=== PATIENT | male | born 1985 | race Caucasian/White ===

== ENCOUNTER 2019-12-04 16:47 | Inpatient (IN) | payer BC, OTHER ==
[2019-12-04 17:30] VITALS: BMI 25.0
--- NOTE | 2019-12-04 17:32 | BHS.RME ---
Substance Use & Tx History - Substance Use History Heroin Substance amount: 20-30 bags Substance route: Injection (ex: intravenous or skin popping) Cocaine- Powder Substance amount: 20-0 $ Frequency of use: Daily Substance route: Injection (ex: intravenous or skin popping) Benzodiazepines Substance amount: 2-4 Frequency of use: Daily Substance route: Oral Cannabis Substance amount: 1-2 Frequency of use: Daily OxyContin Substance amount: 2-3 Frequency of use: Daily Substance route: Oral Physical/Psych/Mental Status - Behavior Eye Contact: Normal - Cooperativeness Cooperativeness: Cooperative - Thinking Thought Processes: Logical - Physical Health Problems Is patient presently having any pain?: No Does patient presently have any injuries (include location): No Does patient currently have a fever: No COWS - Scale Resting Pulse: 0= [place] 80 or Below Sweatin= No chills or Flushing Restless Observation: 3= Extraneous Movement Pupil Size: 0= Normal to Room Light Bone or Joint Aches: 1= Mild Discomfort Runny Nose/ Eye Tearin= None GI Upset > 30mins: 0= None Tremor Observation: 0= None Yawning Observation: 0= None Anxiety or Irritability: 0= None Goose Flesh Skin: 0=Smooth Skin COWS Score: 4 CIWA Nausea/Vomitin-No Nausea/No Vomiting Muscle Tremors: None Anxiety: 1-Mildly Anxious Agitation: 1-Slight > Activity Paroxysmal Sweats: No Perspiration Orientation: 3-Disoriented Date>2 days Tacttile Disturbances: 0-None Auditory Disturbances: 0-None Visual Disturbances: 0-None Headache: 1-Very Mild CIWA-Ar Total Score: 6
--- NOTE | 2019-12-04 17:38 | HP ---
COWS - Scale Resting Pulse: 0= [place] 80 or Below Sweatin= No chills or Flushing Restless Observation: 3= Extraneous Movement Pupil Size: 0= Normal to Room Light Bone or Joint Aches: 1= Mild Discomfort Runny Nose/ Eye Tearin= Nasal Congestion GI Upset > 30mins: 0= None Tremor Observation: 0= None Yawning Observation: 1= 1-2x During Session Anxiety or Irritability: 0= None Goose Flesh Skin: 0=Smooth Skin COWS Score: 6 CIWA Score Nausea/Vomitin-No Nausea/No Vomiting Muscle Tremors: None Anxiety: 1-Mildly Anxious Agitation: 1-Slight > Activity Paroxysmal Sweats: No Perspiration Orientation: 3-Disoriented Date>2 days Tacttile Disturbances: 0-None Auditory Disturbances: 0-None Visual Disturbances: 0-None Headache: 1-Very Mild CIWA-Ar Total Score: 6 - Admission Criteria OASAS Guidelines: Admission for Medically Managed Detox: Requires at least one of the followin. CIWA greater than 12 2. Seizures within the past 24 hours 3. Delirium tremens within the past 24 hours 4. Hallucinations within the past 24 hours 5. Acute intervention needed for co occurring medical disorder 6. Acute intervention needed for co occurring psychiatric disorder 7. Severe withdrawal that cannot be handled at a lower level of care (continued vomiting, continued diarrhea, abnormal vital signs) requiring intravenous medication and/or fluids 8. Admission ROS [facility] Allergies/Adverse Reactions: Allergies Allergy/AdvReac Type Severity Reaction Status Date / Time No Known Allergies Allergy Verified 12/04/19 17:29 History of Present Illness: 34 y.o. male requesting detox from opiate and benzo uze, claims 20-30 bags iv x 10 yrs , needles form the pharamcy , dneies sharing, + re-using , shayna abscess, OD x 4 most recently 6 mo ago , narcan by EMS , prior detox [facility] 1 yr ago , on [facility] x 10 yrs intermittently , through 6 mo ago , stopped going @65 mg . Not planning to return to [facility] . benzo : 2-4 mg / day x 15 years , had a seizure " a long time ago " tobacco : 1/2 ppd requesting nrt w/ gum DISCUSSED W/ PT AT LENGTH RISK OF RESPIRATORY ILLNESS N THE CONTEXT OF HIS ELENI: SMOKING COCAINE, CANNABIS, CIGARETTES , PT ANSWERS " THE WAY I'VE BEEN GOING , I REALLY DON'T CARE " PMHX /PSHX : asthma , hypothyroidism , hypogonadism pshx denies psych : denies no children legal : " a few open cases " in [place] , all drug-related , due in court Jan 04 This report was requested by: Tigist Moreno | Reference #: [id number] Others' Prescriptions Patient Name: Matt Shine Date: 1985 Address: [address], [place] [address]Vju: Male Rx Written Rx Dispensed Drug Quantity Days Supply Prescriber Name Payment Method Dispenser 11/20/2019 11/22/2019 testosterone cyp 200 mg/ml 4ml 30 CalPatrice murguia MD Medicaid [facility] #[id number] 06/25/2019 06/29/2019 testosterone cyp 200 mg/ml 4ml 28 CalamiaPatrice MD Medicaid [facility] #[id number] 05/25/2019 06/02/2019 testosterone cyp 200 mg/ml 4ml 28 CalPatrice murguia MD Medicaid [facility] #[id number] 04/18/2019 05/01/2019 testosterone cyp 200 mg/ml 4ml 30 CalamiaPatrice MD [facility] #[id number] 03/06/2019 03/08/2019 testosterone cyp 200 mg/ml 4ml 28 Patrice Bahena MD [facility] #[id number] 01/28/2019 02/03/2019 testosterone cyp 200 mg/ml 4ml 30 Patrice Bahena MD [facility] #[id number] 12/19/2018 12/20/2018 testosterone cyp 200 mg/ml 4ml 30 Patrice Bahena MD [facility] #[id number] Patient Name: Matt Shine Date: 1985 Address: [address] [place] [id number]: Male Rx Written Rx Dispensed Drug Quantity Days Supply Prescriber Name Payment Method Dispenser 01/18/2019 01/19/2019 testosterone cyp 200 mg/ml 2ml 14 Antoni Addison Medicaid [facility] Exam Limitations: No Limitations - Review of Systems Constitutional: No Symptoms Reported EENT: reports: No Symptoms Reported, Hearing Loss Respiratory: reports: No Symptoms reported Cardiac: reports: No Symptoms Reported GI: reports: Constipated, Vomiting (last few days upn awakening due to w/d) : reports: No Symptoms Reported Musculoskeletal: reports: Muscle Pain Integumentary: reports: See HPI Neuro: reports: Headache Endocrine: reports: See HPI Hematology: reports: No Symptoms Reported Psychiatric: reports: Disorientated Patient History - Smoking Cessation Smoking history: Current every day smoker Have you smoked in the past 12 months: Yes Hx Chewing Tobacco Use: No Initiated information on smoking cessation: Yes 'Breaking Loose' booklet given: 12/04/19 Admission Physical Exam BHS - Vital Signs Vital Signs: Vital Signs - 24 hr 12/04/19 17:28 Temperature 97.6 F Pulse Rate 77 Respiratory 17 Rate Blood Pressure 127/74 - Physical General Appearance: Yes: Mild Distress, Anxious HEENTM: Yes: EOMI, Hearing grossly Normal, Normocephalic, Normal Voice, Hearing Decreased Respiratory: Yes: Chest Non-Tender, No Respiratory Distress, No Accessory Muscle Use, Rhonchi (RUL / RLL) Neck: Yes: No masses,lesions,Nodules, Trachea in good position Cardiology: Yes: Regular Rhythm, Regular Rate, S1, S2 Abdominal: Yes: Non Tender, Soft Back: Yes: Normal Inspection Musculoskeletal: Yes: Gait Steady Extremities: Yes: Normal Range of Motion, Non-Tender Neurological: Yes: Alert, Motor Strength 5/5, Disoriented Integumentary: Yes: Warm - Diagnostic (1) Opioid use disorder Current Visit: Yes Status: Chronic (2) Sedative, hypnotic or anxiolytic use disorder, mild, abuse Current Visit: Yes Status: Chronic (3) Nicotine dependence Current Visit: Yes Status: Chronic Qualifiers: Nicotine product type: cigarettes (4) Cocaine use disorder Current Visit: Yes Status: Chronic (5) Cannabis dependence Current Visit: Yes Status: Chronic Breathalyzer - Breathalyzer Breathalyzer: 0 Urine Drug Screen - Test Device Lot number: [id number] Expiration date: 06/05/21 - Control Is test valid?: Yes - Results Drug screen NEGATIVE: No Urine drug screen results: THC-Marijuana, ADELE-Cocaine, FEN-Fentanyl, MOP- Opiates, OXY-Oxycodone Inpatient Rehab Admission - Rehab Decision to Admit Inpatient rehab admission?: No
[2019-12-04] MEDS ORDERED: MENTHOL/PHENOL 1 EACH UD MM PRN (17:48)
[2019-12-04] MEDS ORDERED: MAG HYDROX/AL HYDROX/SIMETH 30 ML UNIT-DOSE CUP PO PRN (17:48)
[2019-12-04] MEDS ORDERED: NICOTINE POLACRILEX 2 MG GUM BUC PRN (17:48)
[2019-12-04] MEDS ORDERED: BISMUTH SUBSALICYLATE 524 MG/30 ML UD PO PRN (17:48)
[2019-12-04] MEDS ORDERED: ONDANSETRON *ODT* 4 MG TABLET SL PRN (17:48)
[2019-12-04] MEDS ORDERED: ACETAMINOPHEN 325 MG TABLET (FP) PO PRN ×2 (17:48)
[2019-12-04] MEDS ORDERED: MAGNESIUM HYDROX 2400MG/30ML ORAL SUSPENSION 30 ML CUP PO PRN (17:48)
[2019-12-04] MEDS ORDERED: MAGNESIUM CITRATE 300 ML BOTTLE PO PRN (17:48)
--- OUTSIDE RECORDS SUMMARY | 2019-12-04 18:46 | XMS ---
:1985 Author Organization [facility] Support Name Relationship Address Phone UE Unavailable Unavailable Unavailable REY RICHARDSON SELF / SAME PATIENT [address] [facility] [phone] [place] [address] Re-disclosure Warning The records that you are about to access may contain information from federally- assisted alcohol or drug abuse programs. If such information is present, then the following federally mandated warning applies: This information has been disclosed to you from records protected by federal confidentiality rules (42 CFR part 2). The federal rules prohibit you from making any further disclosure of this information unless further disclosure is expressly permitted by the written consent of the person to whom it pertains or as otherwise permitted by 42 CFR part 2. A general authorization for the release of medical or other information is NOT sufficient for this purpose. The Federal rules restrict any use of the information to criminally investigate or prosecute any alcohol or drug abuse patient.The records that you are about to access may contain highly sensitive health information, the redisclosure of which is protected by Article 27-F of the [facility] Public Health law. If you continue you may haveaccess to information: Regarding HIV / AIDS; Provided by facilities licensed or operated by the [facility] Office of Mental Health; or Provided by the [facility] Office for People With Developmental Disabilities. If such information is present, then the following [facility] mandated warning applies: This information has been disclosed to you from confidential records which are protected by state law. State law prohibits you from making any further disclosure of this information without the specific written consent of the person to whom it pertains, or as otherwise permitted by law. Any unauthorized further disclosure in violation of state law may result in a fine or chcf sentence or both. A general authorization for the release of medical or other information is NOT sufficient authorization for further disclosure. Insurance Providers Payer name Policy type / Policy ID Covered Covered constitution party's Policy Plan Coverage type constitution party ID relationship to [employer] PPO [id number] SP [id number]
[2019-12-04] MEDS: chlordiazePOXIDE HCL 25 MG CAPSULE PO PRN (19:14)
[2019-12-04] MEDS: chlordiazePOXIDE HCL 25 MG CAPSULE PO SCH ×2 (19:15→22:15)
[2019-12-04] MEDS ORDERED: METHADONE HCL 10 MG TABLET (FOR DETOX USE ONLY) PO ONE (22:00)
[2019-12-04] MEDS: THIAMINE HCL 100 MG TABLET (FP) PO SCH (22:15)
[2019-12-04] MEDS: MELATONIN 5 MG TABLETS PO SCH (22:17)
[2019-12-05] MEDS: chlordiazePOXIDE HCL 25 MG CAPSULE PO SCH ×4 (06:25→22:31)
[2019-12-05] MEDS: IBUPROFEN 400 MG TABLET (FP) PO PRN ×2 (06:26→21:00)
--- NOTE | 2019-12-05 08:48 | EKG ---
Test Reason : Blood Pressure : / mmHG Vent. Rate : 084 BPM Atrial Rate : 084 BPM P-R Int : 142 ms QRS Dur : 092 ms QT Int : 348 ms P-R-T Axes : 081 081 065 degrees QTc Int : 411 ms NORMAL SINUS RHYTHM NORMAL ECG NO PREVIOUS ECGS AVAILABLE Confirmed by Fantasma Maradiaga MD ([id number]) on 12/05/2019 8:47:05 AM Referred By: Yuri Couch Confirmed By:Fantasma Maradiaga MD
[2019-12-05] MEDS ORDERED: METHADONE HCL 5 MG TABLET (FOR DETOX USE ONLY) ONE (09:42)
[2019-12-05] MEDS ORDERED: METHADONE HCL 10 MG TABLET (FOR DETOX USE ONLY) ONE (09:43)
[2019-12-05] MEDS ORDERED: METHADONE (DETOX) 20 MG, METHADONE (DETOX) 5 MG PO ONE (10:00)
[2019-12-05] MEDS: PRENATAL VITAMINS W/ FOLIC ACID TABLET (FP) PO SCH (10:09)
[2019-12-05 10:45] LABS: HEMATOCRIT 37.7 % (35.4-49); HEMOGLOBIN 12.6 GM/dL (11.7-16.9); MCH 29.7 pg (25.7-33.7); MCHC 33.6 g/dl (32.0-35.9); MEAN CELL VOLUME 88.3 fl (80-96); MEAN PLT VOLUME 7.1 fl (7.5-11.1); PLATELET COUNT 239 K/MM3 (134-434); RBC 4.27 M/mm3 (4.00-5.60); RDW 14.6 % (11.9-15.9); WHITE BLOOD COUNT 4.1 K/mm3 (4.0-10.0)
[2019-12-05 11:33] LABS: ALBUMIN 3.1 g/dl (3.4-5.0); BILIRUBIN,TOTAL 0.4 mg/dL (0.2-1); BLOOD UREA NITROGEN 7.6 mg/dL (7-18); CALCIUM 8.7 mg/dL (8.5-10.1); CREATININE 1.1 mg/dL (0.55-1.3); POTASSIUM 4.1 mmol/L (3.5-5.1); TOT PROT 6.5 g/dl (6.4-8.2)
--- NOTE | 2019-12-05 12:35 | PN ---
[facility] CIWA - CIWA Score Nausea/Vomitin-No Nausea/No Vomiting Muscle Tremors: 3 Anxiety: 2 Agitation: 3 Paroxysmal Sweats: 3 Orientation: 0-Oriented Tacttile Disturbances: 0-None Auditory Disturbances: 0-None Visual Disturbances: 0-None Headache: 0-None Present CIWA-Ar Total Score: 11 BHS COWS - Scale Resting Pulse: 1= [place] 81-100 Sweatin= Chills/Flushing Restless Observation: 1= Difficult to Sit Still Pupil Size: 0= Normal to Room Light Bone or Joint Aches: 1= Mild Discomfort Runny Nose/ Eye Tearin= Nasal Congestion GI Upset > 30mins: 0= None Tremor Observation of Outstretched Hands: 1= Tremor [place], Not Seen Yawning Observation: 1= 1-2x During Session Anxiety or Irritability: 2=Irritable/Anxious Goose Flesh Skin: 0=Smooth Skin COWS Score: 9 S Progress Note (SOAP) Subjective: sweats shakes increase fluids body aches irritable Objective: 12/05/19 12:34 Vital Signs Temperature 97.7 F 12/05/19 08:34 Pulse Rate 99 H 12/05/19 08:34 Respiratory Rate 18 12/05/19 08:34 Blood Pressure 121/65 12/05/19 08:34 O2 Sat by Pulse Oximetry (%) 98 12/05/19 08:34 Laboratory Tests 12/04/19 12/05/19 12/05/19 07:00 07:00 07:00 WBC 4.1 RBC 4.27 Hgb 12.6 Hct 37.7 MCV 88.3 MCH 29.7 MCHC 33.6 RDW 14.6 Plt Count 239 MPV 7.1 L Sodium 141 Potassium 4.1 Chloride 106 Carbon Dioxide 30 Anion Gap 4 L BUN 7.6 Creatinine 1.1 Est GFR (CKD-EPI)AfAm 99.57 Est GFR (CKD-EPI)NonAf 85.91 Random Glucose 95 Calcium 8.7 Total Bilirubin 0.4 AST 8 L ALT 19 Alkaline Phosphatase 40 L Total Protein 6.5 Albumin 3.1 L Syphilis Serology Non-reactive labs noted aaox3 ambulating no acute distress Assessment: 12/05/19 12:34 withdrawals Plan: continue detox increase fluids
[2019-12-05] MEDS: METHOCARBAMOL 500 MG TABLET PO PRN ×2 (12:52→19:18)
[2019-12-05] MEDS: cloNIDine HCL 0.1 MG TABLET PO PRN (17:41)
[2019-12-05] MEDS: hydrOXYzine PAMOATE 25 MG CAPSULE (FP) PO PRN (19:18)
[2019-12-05] MEDS: chlordiazePOXIDE HCL 25 MG CAPSULE PO PRN (20:57)
[2019-12-05] MEDS: MELATONIN 5 MG TABLETS PO SCH (22:32)
[2019-12-05] MEDS: THIAMINE HCL 100 MG TABLET (FP) PO SCH (22:32)
[2019-12-06] MEDS: METHOCARBAMOL 500 MG TABLET PO PRN ×2 (00:22→07:23)
[2019-12-06] MEDS: chlordiazePOXIDE HCL 25 MG CAPSULE PO PRN (00:23)
[2019-12-06] MEDS: cloNIDine HCL 0.1 MG TABLET PO PRN (00:23)
[2019-12-06] MEDS: hydrOXYzine PAMOATE 25 MG CAPSULE (FP) PO PRN (02:50)
[2019-12-06] MEDS: chlordiazePOXIDE HCL 25 MG CAPSULE PO SCH ×2 (07:22→10:24)
[2019-12-06] MEDS ORDERED: METHOCARBAMOL 750 MG TAB PO PRN (09:29)
[2019-12-06] MEDS ORDERED: hydrOXYzine PAMOATE 50 MG CAPSULE (FP) PO PRN (09:30)
[2019-12-06] MEDS ORDERED: METHADONE HCL 10 MG TABLET (FOR DETOX USE ONLY) PO ONE (10:00)
[2019-12-06] MEDS: PRENATAL VITAMINS W/ FOLIC ACID TABLET (FP) PO SCH (10:24)
[2019-12-06 11:07] VITALS: BP 130/79; PULSE 78; TEMP 98.2
--- NOTE | 2019-12-06 11:27 | PN ---
[facility] CIWA - CIWA Score Nausea/Vomitin-No Nausea/No Vomiting Muscle Tremors: 3 Anxiety: 2 Agitation: 3 Paroxysmal Sweats: 2 Orientation: 0-Oriented Tacttile Disturbances: 0-None Auditory Disturbances: 0-None Visual Disturbances: 0-None Headache: 0-None Present CIWA-Ar Total Score: 10 BHS COWS - Scale Resting Pulse: 0= [place] 80 or Below Sweatin= Chills/Flushing Restless Observation: 1= Difficult to Sit Still Pupil Size: 0= Normal to Room Light Bone or Joint Aches: 2= Severe Diffuse Aches Runny Nose/ Eye Tearin= Nasal Congestion GI Upset > 30mins: 0= None Tremor Observation of Outstretched Hands: 1= Tremor [place], Not Seen Yawning Observation: 1= 1-2x During Session Anxiety or Irritability: 2=Irritable/Anxious Goose Flesh Skin: 0=Smooth Skin COWS Score: 9 BHS Progress Note (SOAP) Subjective: sweats restless legs agitation body aches irritable Objective: 12/06/19 11:19 Vital Signs Temperature 98.2 F 12/06/19 08:34 Pulse Rate 78 12/06/19 08:34 Respiratory Rate 18 12/06/19 08:34 Blood Pressure 130/79 12/06/19 08:34 O2 Sat by Pulse Oximetry (%) 100 12/06/19 08:34 Laboratory Tests 12/04/19 12/04/19 12/05/19 07:00 18:40 07:00 WBC 4.1 RBC 4.27 Hgb 12.6 Hct 37.7 MCV 88.3 MCH 29.7 MCHC 33.6 RDW 14.6 Plt Count 239 MPV 7.1 L Sodium Potassium Chloride Carbon Dioxide Anion Gap BUN Creatinine Est GFR (CKD-EPI)AfAm Est GFR (CKD-EPI)NonAf Random Glucose Calcium Total Bilirubin AST ALT Alkaline Phosphatase Total Protein Albumin Syphilis Serology Non-reactive COVID-19 ([place]) Not detected 12/05/19 07:00 WBC RBC Hgb Hct MCV MCH MCHC RDW Plt Count MPV Sodium 141 Potassium 4.1 Chloride 106 Carbon Dioxide 30 Anion Gap 4 L BUN 7.6 Creatinine 1.1 Est GFR (CKD-EPI)AfAm 99.57 Est GFR (CKD-EPI)NonAf 85.91 Random Glucose 95 Calcium 8.7 Total Bilirubin 0.4 AST 8 L ALT 19 Alkaline Phosphatase 40 L Total Protein 6.5 Albumin 3.1 L Syphilis Serology COVID-19 ([place]) aaox3 ambulating no acute distress Assessment: 12/06/19 11:27 withdrawals pt was made aware I will be increasing roboxin to 750mg and visitril to 50mg prn to assist with his withdrawals. Plan: continue detox
--- NOTE | 2019-12-06 15:22 | DS ---
[facility] Detox Discharge Summary Admission Date: 12/04/19 - History Present History: Cocaine Dependence, Opioid Dependence, Sedative Dependence - Physical Exam Results Vital Signs: Vital Signs Temperature 98.2 F 12/06/19 08:34 Pulse Rate 78 12/06/19 08:34 Respiratory Rate 18 12/06/19 08:34 Blood Pressure 130/79 12/06/19 08:34 O2 Sat by Pulse Oximetry (%) 100 12/06/19 08:34 Pertinent Admission Physical Exam Findings: Vital Signs Temperature 98.2 F 12/06/19 08:34 Pulse Rate 78 12/06/19 08:34 Respiratory Rate 18 12/06/19 08:34 Blood Pressure 130/79 12/06/19 08:34 O2 Sat by Pulse Oximetry (%) 100 12/06/19 08:34 Laboratory Tests 12/04/19 12/04/19 12/05/19 07:00 18:40 07:00 WBC 4.1 RBC 4.27 Hgb 12.6 Hct 37.7 MCV 88.3 MCH 29.7 MCHC 33.6 RDW 14.6 Plt Count 239 MPV 7.1 L Sodium Potassium Chloride Carbon Dioxide Anion Gap BUN Creatinine Est GFR (CKD-EPI)AfAm Est GFR (CKD-EPI)NonAf Random Glucose Calcium Total Bilirubin AST ALT Alkaline Phosphatase Total Protein Albumin Syphilis Serology Non-reactive COVID-19 ([place]) Not detected 12/05/19 07:00 WBC RBC Hgb Hct MCV MCH MCHC RDW Plt Count MPV Sodium 141 Potassium 4.1 Chloride 106 Carbon Dioxide 30 Anion Gap 4 L BUN 7.6 Creatinine 1.1 Est GFR (CKD-EPI)AfAm 99.57 Est GFR (CKD-EPI)NonAf 85.91 Random Glucose 95 Calcium 8.7 Total Bilirubin 0.4 AST 8 L ALT 19 Alkaline Phosphatase 40 L Total Protein 6.5 Albumin 3.1 L Syphilis Serology COVID-19 ([place]) aaox3 ambulating no acute distress pt signed out AMA. - Treatment Hospital Course: Rehab Referral Accepted - Medication Discharge Medications: Ambulatory Orders NK [No Known Home Medication] 12/04/19 - Diagnosis (1) Cannabis dependence Status: Chronic (2) Cocaine use disorder Status: Chronic (3) Nicotine dependence Status: Chronic Qualifiers: Nicotine product type: cigarettes (4) Opioid use disorder Status: Chronic (5) Sedative, hypnotic or anxiolytic use disorder, mild, abuse Status: Chronic - AMA Did Patient Leave Against Medical Advice: Yes
--- NOTE | 2019-12-06 15:23 | PN ---
S Progress Note Note: pt was made aware of risk of leaving AMA and risk for relapse, seizure, DT, OD and or loss. pt chose to sign out.
[2019-12-07] MEDS ORDERED: chlordiazePOXIDE HCL 10 MG CAPSULE PO PRN
[2019-12-07] MEDS ORDERED: chlordiazePOXIDE HCL 10 MG CAPSULE PO SCH (05:00)
[2019-12-07] MEDS ORDERED: METHADONE (DETOX) 10 MG, METHADONE (DETOX) 5 MG PO ONE (10:00)
[2019-12-08] MEDS ORDERED: chlordiazePOXIDE HCL 10 MG CAPSULE PO SCH (05:00)
[2019-12-08] MEDS ORDERED: METHADONE HCL 10 MG TABLET (FOR DETOX USE ONLY) PO ONE (10:00)
[2019-12-09] MEDS ORDERED: chlordiazePOXIDE HCL 10 MG CAPSULE PO ONE (05:00)
[2019-12-09] MEDS ORDERED: METHADONE HCL 5 MG TABLET (FOR DETOX USE ONLY) PO ONE (06:00)
== END 2019-12-06 11:56 | disposition left against medical advice (07) | DRG 770 ==
LOC: YASAS 16:47 → Y6N 18:29
PROVIDERS: ADMIT Allergy & Immunology; ATTEND Allergy & Immunology
PROC: HZ2ZZZZ Detoxification Services for Substance Abuse Treatment (ICD-10-PCS; principal; 2019-12-04)
DX: F11.23 Opioid dependence with withdrawal (principal); F13.20 Sedative, hypnotic or anxiolytic dependence, uncomplicated; F14.20 Cocaine dependence, uncomplicated; F12.20 Cannabis dependence, uncomplicated; F17.210 Nicotine dependence, cigarettes, uncomplicated; E03.9 Hypothyroidism, unspecified; E34.8 Other specified endocrine disorders
CPT/HCPCS: 36415; 71046-TC-FY; 80053; 85027; 86780; 93005; 93010; C9803; J0735; Q0162; U0003